=== PATIENT | female | born 1975 | race Asian ===

== ENCOUNTER 2019-06-07 10:30 | Emergency (ER) | payer OTHER ==
[~2019-06-07] VITALS: Ht 175.3 cm; Wt 64.0 kg
[~2019-06-07 10:30] MED LIST: CLARITIN10 MG PO; KEFLEX500 M1 PO
[2019-06-07 11:06] LABS: URINE BILIRUBIN NEGATIVE (Negative); URINE BLOOD TRACE (Negative); URINE CLARITY CLEAR; URINE COLOR YELLOW; URINE GLUCOSE-RANDOM* NEGATIVE (Negative); URINE KETONES NEGATIVE (Negative); URINE LEUKOCYTES-REFLEX TRACE (Negative); URINE NITRITE-REFLEX NEGATIVE (Negative); URINE PROTEIN (DIPSTICK) NEGATIVE (Negative); URINE SPECIFIC GRAVITY >= 1.030 (1.005-1.035); URINE UROBILINOGEN 0.2 E.U./dl (0.2-1.0)
[2019-06-07] MEDS ORDERED: NAPROSYN500 MG PO (11:29)
[2019-06-07] MEDS ORDERED: LIDOCAINE PAIN1 EACH TRANSDERM (11:29)
[2019-06-07 11:40] VITALS: BP 121/59
== END 2019-06-07 11:40 | disposition home or self-care (01) ==
LOC: ER 10:30
PROVIDERS: Physician Assistant
DX: S76.811A Strain of other specified muscles, fascia and tendons at thigh level, right thigh, initial encounter (principal); X58.XXXA Exposure to other specified factors, initial encounter; Y93.89 Activity, other specified; Y92.89 Other specified places as the place of occurrence of the external cause; Y99.8 Other external cause status

== ENCOUNTER 2019-06-20 10:28 | Emergency (ER) | payer OTHER ==
[~2019-06-20] VITALS: Ht 175.3 cm; Wt 66.7 kg
[~2019-06-20 10:28] MED LIST changes: +LIDOCAINE PAIN1 EACH TRANSDERM; +NAPROSYN500 MG PO
[2019-06-20] MEDS ORDERED: CLARITIN10 M3 PO (11:29)
[2019-06-20 12:02] VITALS: BP 109/73
== END 2019-06-20 12:02 | disposition home or self-care (01) ==
LOC: ER 10:28
DX: J02.9 Acute pharyngitis, unspecified (principal); R05 Cough; J34.89 Other specified disorders of nose and nasal sinuses; H93.8X2 Other specified disorders of left ear; Z79.899 Other long term (current) drug therapy